=== PATIENT | male | born 1960 | race Caucasian/White ===

== ENCOUNTER 2018-04-03 14:35 | Observation (INO) ==
[2018-04-03] MEDS ORDERED: Acetaminophen 500 MG Tablet PO PRN (19:47)
[2018-04-03] MEDS ORDERED: Morphine Sulfate Inj 2 MG/ML Vial IV.PUSH PRN (21:15)
[2018-04-03] MEDS: Heparin - SQ 10,000 UNITS/ML Vial SQ SCH (22:24)
[2018-04-03] MEDS: MethylPREDNISolone Sod Succinate Inj 40 MG/ML Vial IV.PUSH SCH (22:24)
[2018-04-03] MEDS: Famotidine 20 MG Tablet PO SCH (22:25)
[2018-04-04] MEDS: Heparin - SQ 10,000 UNITS/ML Vial SQ SCH (05:04)
[2018-04-04] MEDS: MethylPREDNISolone Sod Succinate Inj 40 MG/ML Vial IV.PUSH SCH ×2 (05:04→10:36)
[2018-04-04 06:26] LABS: Baso # (Auto) 0.1 th/mm3 (0.0-0.2); Baso % (Auto) 1.4 % (0.0-2.0); Eos # (Auto) 0.1 th/mm3 (0.0-0.4); Eos % (Auto) 0.8 % (0.0-4.0); Hemoglobin 15.2 gm/dL (13.0-17.0); Lymph # (Auto) 0.7 th/mm3 (1.0-4.8); Lymph % (Auto) 11.4 % (9.0-44.0); Mean Corpuscular Hemoglobin 33.5 pg (27.0-34.0); Mean Corpuscular Volume 101.4 fL (80.0-100.0); Mean Platelet Volume 7.9 fL (7.0-11.0); Mono # (Auto) 0.2 th/mm3 (0.0-0.9); Mono % (Auto) 2.4 % (0.0-8.0); Neut # (Auto) 5.5 th/mm3 (1.8-7.7); Platelet Count 143 th/mm3 (150-450); Red Blood Count 4.54 mil/mm3 (4.50-5.90); Red Cell Distribution Width 14.5 % (11.6-17.2); White Blood Count 6.6 th/mm3 (4.0-11.0)
[2018-04-04 06:35] LABS: Chloride 102 meq/L (98-107); Sodium 139 meq/L (136-145)
[2018-04-04 06:40] LABS: Calcium 8.6 mg/dL (8.5-10.1)
[2018-04-04 06:41] LABS: Anion Gap 9 meq/L (5-15); Blood Urea Nitrogen 17 mg/dL (7-18); Carbon Dioxide 28.4 meq/L (21.0-32.0); Glucose,Random 141 mg/dL (74-106)
[2018-04-04 06:44] LABS: Glomerular Filtration Rate Greater Than 89 mL/min (>89)
[2018-04-04] MEDS: Famotidine 20 MG Tablet PO SCH (08:15)
--- NOTE | 2018-04-04 08:27 | P.HP ---
History of Present Illness Primary Care Physician: UNKNOWN History of Present Illness: This is a 57-year-old male patient with a known medical history of COPD, CHF, CAD with cardiac stents and cardiomyopathy who presented to the ED with complaints of chest pain and increased shortness of breath. Patient states that yesterday morning he ate some black pain dip took a nap and woke up around 1300 with midsternal chest pain that radiated to his neck, characterizes pain as tight in nature, lasted roughly 4 hours and subsided when he arrived to the ED. He does admit to associated sweating and shortness of breath. Denies any associated nausea, vomiting. Patient states that the chest tightness radiated up his neck as well as his bilateral sides of his chest. Patient also admits to some dizziness. 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 At that time his carvedilol was increased to 6.25 twice daily. Patient last underwent a stress test in October 2017 which was reportedly negative. He did have an [place] in 2013, states that this complaints are similar in nature. Patient denies any recent illness including fever, chills, abdominal pain, nausea, vomiting, diarrhea or dysuria. Patient does admit to current tobacco abuse, half pack per day for many years. 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 - Diagnosis (1) Chest pain (2) Hypertension (3) CHF (congestive heart failure) (4) COPD with exacerbation Review of Systems All other systems reviewed negative except as stated in HPI PMFSH - History History Provided By: Patient - Medical History Medical History: Medical History (Last Updated 04/04/18 @ 10:23 by Siri Graham) Atrial fibrillation CHF (congestive heart failure) COPD (chronic obstructive pulmonary disease) GERD (gastroesophageal reflux disease) High cholesterol Hypertension Right wrist injury - Surgical History Surgical History: Surgical History (Last Updated 04/04/18 @ 10:23 by Siri Graham) H/O heart artery stent - Family History Family History: Family History (Last Updated 04/04/18 @ 10:23 by Siri Graham) Other Cardiovascular disease - Tobacco History Second Hand Smoke Exposure: Yes Tobacco Use In Past 30 Days: Yes Smoking Status: Current every day smoker Tobacco Type: Cigarettes - Alcohol History How Often Do You Have a Drink Containing Alcohol: Monthly or less - Substance Use History Substance History: No History of Abuse Medications and Allergies Active Medications: Active Medications Acetaminophen (Tylenol) 500 mg PO Q4H PRN PRN Reason: Headache/fever Hydrocodone Bitart/Acetaminophen ([place] 7.5/325) 1 tab PO Q4H PRN PRN Reason: PAIN SCALE 1 TO 5 Albuterol (Duoneb Neb (Prn)) 1 ampul NEB Q2HR NEB PRN PRN Reason: SHORTNESS OF BREATH/WHEEZING Albuterol (Duoneb Neb (Forrest)) 1 ampul NEB Q6HR WHILE AWAKE NEB FORREST Famotidine (Pepcid) 20 mg PO BID [facility] Last Admin: 04/04/18 08:15 Dose: 20 mg Heparin Sodium (Porcine) (Heparin Inj) 5,000 units SQ Q8HR [facility] Last Admin: 04/04/18 05:04 Dose: 5,000 units Methylprednisolone Sodium Succinate (Solumedrol Inj) 40 mg IV.PUSH Q6H [facility] Last Admin: 04/04/18 05:04 Dose: 40 mg Morphine Sulfate (Morphine Inj) 2 mg IV.PUSH Q3H PRN PRN Reason: PAIN 6-10 Nitroglycerin (Nitrostat Sl) 0.4 mg SL Q5M PRN PRN Reason: ANGINA Sodium Chloride (Ns Flush) 2 ml IV.FLUSH BID [facility] Last Admin: 04/04/18 08:16 Dose: 2 ml Sodium Chloride (Ns Flush) 2 ml IV.FLUSH PRN PRN PRN Reason: FLUSH AFTER USING IV ACCESS Allergies Allergy/AdvReac Type Severity Reaction Status Date / Time Anesthetics - Amide Type Allergy Severe Unresponsiv Verified 04/03/18 14:49 e Anesthetics - Tresa Type- Allergy Severe Unresponsiv Verified 04/03/18 14:49 Parabens e lisinopril Allergy Severe "throat Verified 04/03/18 14:49 sore" Home Medications Medication Instructions Recorded Confirmed Type Multi Vitamin DAILY 04/03/18 History albuterol sulfate 2 puff INHALATION Q4-6H 04/03/18 04/03/18 History aspirin 325 mg PO DAILY 04/03/18 04/03/18 History atorvastatin 40 mg PO DAILY 04/03/18 04/03/18 History budesonide-formoterol 2 puff INHALATION BID 04/03/18 04/03/18 History carvedilol 6.25 mg PO BID 04/03/18 04/03/18 History furosemide [Lasix] 20 mg PO BID 04/03/18 04/03/18 History losartan 100 mg PO DAILY 04/03/18 04/03/18 History naproxen 250 mg PO BID 04/03/18 04/03/18 History omeprazole 20 mg PO DAILY 04/03/18 04/03/18 History Exam Vital signs: Vital Signs 04/03/18 20:00 04/03/18 21:47 04/03/18 22:00 Temperature 98.3 F Pulse Rate 76 76 74 Respiratory Rate 18 16 Blood Pressure 149/95 H Pulse Oximetry 95 93 L 04/03/18 22:17 04/04/18 00:00 04/04/18 04:00 Temperature 98.3 F 97.7 F Pulse Rate 74 75 Respiratory Rate 16 16 Blood Pressure 149/95 H 157/81 H Pulse Oximetry 98 93 L 97 Narrative: GENERAL: Well-developed, well-nourished patient in [facility]. SKIN: Warm and dry. No rash. HEAD: Normocephalic. Atraumatic. EYES: Pupils equal and round. No scleral icterus. No injection or drainage. ENT: No nasal bleeding or discharge. Mucous membranes pink and moist. NECK: Supple. Trachea midline. CARDIOVASCULAR: No murmur appreciated. No chest pain to palpation. RESPIRATORY: No accessory muscle use. Clear to auscultation. Breath sounds equal bilaterally. GASTROINTESTINAL: Abdomen soft, non-tender, nondistended. Normoactive bowel sounds x4. MUSCULOSKELETAL: No obvious deformities. Extremities without clubbing, cyanosis , or edema. NEUROLOGICAL: Awake and alert. No obvious cranial nerve deficits. Motor grossly within normal limits. 5/5 muscle strength in bilateral upper and lower extremities. Normal speech. PSYCHIATRIC: Appropriate mood and affect; insight and judgment normal. - Constitutional no acute distress - Routine HEENT Exam Head: Present: normocephalic Eye: Present: EOMI ENT: Present: mucous membranes moist Results - Labs CBC & Chem 7: 04/04/18 05:05 04/04/18 05:05 Labs: Laboratory Results - last 24 hr 04/03/18 04/03/18 04/04/18 21:51 21:51 05:05 CBC w Diff Auto diff final WBC 6.6 RBC 4.54 Hgb 15.2 Hct 46.0 MCV 101.4 H MCH 33.5 MCHC 33.0 RDW 14.5 Plt Count 143 L MPV 7.9 Neut % (Auto) 84.0 H Lymph % (Auto) 11.4 Howell % (Auto) 2.4 Eos % (Auto) 0.8 Baso % (Auto) 1.4 Neut # (Auto) 5.5 Lymph # (Auto) 0.7 L Howell # (Auto) 0.2 Eos # (Auto) 0.1 Baso # (Auto) 0.1 WBC Differential . Differential Comment . Sodium Potassium Chloride Carbon Dioxide Anion Gap BUN Creatinine Estimated GFR Random Glucose Calcium Magnesium 2.1 Troponin I Less than 0.02 L 04/04/18 05:05 CBC w Diff WBC RBC Hgb Hct MCV MCH MCHC RDW Plt Count MPV Neut % (Auto) Lymph % (Auto) Howell % (Auto) Eos % (Auto) Baso % (Auto) Neut # (Auto) Lymph # (Auto) Howell # (Auto) Eos # (Auto) Baso # (Auto) WBC Differential Differential Comment Sodium 139 Potassium 4.0 Chloride 102 Carbon Dioxide 28.4 Anion Gap 9 BUN 17 Creatinine 0.81 Estimated GFR Greater than 89 Random Glucose 141 H Calcium 8.6 Magnesium Troponin I Caprini VTE Risk Assessment Caprini VTE Risk Assessment: No/Low Risk (score <= 1) Caprini Risk Assessment Model: Point Value = 1 Point Value = 2 Point Value = 3 Point Value = 5 Age 41-60 Minor surgery BMI > 25 kg/m2 Swollen legs Varicose veins or History of unexplained or recurrent spontaneous Oral contraceptives or hormone replacement Sepsis (< 1 month) Serious lung disease, including pneumonia (< 1 month) Abnormal pulmonary function Acute myocardial infarction Congestive heart failure (< 1 month) History of inflammatory bowel disease Medical patient at bed rest Age 61-74 Arthroscopic surgery Major open surgery (> 45 min) Laparoscopic surgery (> 45 min) Malignancy Confined to bed (> 72 hours) Immobilizing plaster cast Central venous access Age >= 75 History of VTE Family history of VTE Factor V Leiden Prothrombin [id number] Lupus anticoagulant Anticardiolipin antibodies Elevated serum homocysteine Heparin-induced thrombocytopenia Other congenital or acquired thrombophilia Stroke (< 1 month) Elective arthroplasty Hip, pelvis, or leg fracture Acute spinal cord injury (< 1 month) Prophylaxis Regimen: Total Risk Factor Score Risk Level Prophylaxis Regimen 0-1 Low Early ambulation 2 Moderate Order ONE of the following: *Sequential Compression Device (SCD) *Heparin 5000 units SQ BID 3-4 Higher Order ONE of the following medications: *Heparin 5000 units SQ TID *Enoxaparin/Lovenox 40 mg SQ daily (WT < 150 kg, CrCl > 30 mL/min) *Enoxaparin/Lovenox 30 mg SQ daily (WT < 150 kg, CrCl > 10-29 mL/min) *Enoxaparin/Lovenox 30 mg SQ BID (WT < 150 kg, CrCl > 30 mL/min) AND/OR *Sequential Compression Device (SCD) 5 or more Highest Order ONE of the following medications: *Heparin 5000 units SQ TID (Preferred with Epidurals) *Enoxaparin/Lovenox 40 mg SQ daily (WT < 150 kg, CrCl > 30 mL/min) *Enoxaparin/Lovenox 30 mg SQ daily (WT < 150 kg, CrCl > 10-29 mL/min) *Enoxaparin/Lovenox 30 mg SQ BID (WT < 150 kg, CrCl > 30 mL/min) AND *Sequential Compression Device (SCD) Assessment and Plan - Assessment (1) Chest pain Code(s): R07.9 - Chest pain, unspecified Status: Acute Plan: Patient has been admitted for observation. Serial EKGs and serial troponins have been ordered for ruling out ACS purposes. Serial troponins flat. EKG reviewed showing sinus rhythm, controlled heart rate, no ST changes to indicate ischemia. Continued on cardiac telemetry, reviewed from overnight no arrhythmias noted. Chest x-ray did not show any acute process. CBC and BMP essentially remarkable. Chest pain has resolved. Patient admits to a recent stress test in October of this year which was reportedly unremarkable. He follows with his [facility] [place] was last seen 2 weeks ago with changes to his carvedilol. Vital signs have been stable. Afebrile. ACS ruled out. Will have patient follow-up outpatient with his diesel fleet mechanic [place] the [place]. Patient encouraged to return to ED if symptoms persist. Stable at this time and agreeable to the plan. (2) Hypertension Code(s): I10 - Essential (primary) hypertension Status: Acute Plan: Monitor blood pressure trends. Stable. Continued blood pressure home medications. (3) CHF (congestive heart failure) Code(s): I50.9 - Heart failure, unspecified Status: Acute Plan: Stable. Continue Lasix. Follow-up outpatient cardiology. (4) COPD with exacerbation Code(s): J44.1 - Chronic obstructive pulmonary disease with (acute) exacerbation Status: Acute Plan: Patient was given IV steroids as well as nebulizers. Symptoms have improved. Denies any further shortness of breath. Chest x-ray reviewed showing no acute disease. Will discharge home with home nebulizers and inhalers as well as a Medrol Dosepak. Encouraged follow-up with PCP. - Plan Discharge Planning: Discharge home today. Heart healthy diet. Activity as tolerated. Prescriptions as ordered on discharge planning. Follow-up PCP and cardiology at [place].
[2018-04-04 08:42] VITALS: BP 184/93; RESP 18; TEMP 96.6
[2018-04-04 09:22] LABS: Creatine Kinase 64 U/L (39-308)
[2018-04-04] MEDS ORDERED: Aspirin 325 MG Tablet PO SCH (10:15)
[2018-04-04] MEDS ORDERED: Carvedilol 6.25 MG Tablet PO SCH (10:15)
[2018-04-04] MEDS ORDERED: Furosemide 20 MG Tablet PO SCH (10:15)
[2018-04-04 10:51] VITALS: PULSE 66
[2018-04-04] MEDS ORDERED: Budesonide-Formoterol 160/4.5 MCG 6 GM Inhaler INH SCH (12:00)
--- NOTE | 2018-04-04 14:43 | ECG ---
Date Performed: 04/03/2018 Time Performed: 21:47:23 PTAGE: 57 years EKG: Sinus rhythm NONSPECIFIC T-WAVE ABNORMALITY BORDERLINE ECG NO PREVIOUS TRACING DOCTOR: Kai Graf Interpretating Date/Time 04/04/2018 14:43:12
--- NOTE | 2018-04-04 14:51 | ECG ---
Date Performed: 04/04/2018 Time Performed: 08:45:20 PTAGE: 57 years EKG: Sinus rhythm MODERATE INTRAVENTRICULAR CONDUCTION DELAY NONSPECIFIC T-WAVE ABNORMALITY BORDERLINE ECG PREVIOUS TRACING : 04/03/2018 21.47 Since previous tracing, no significant change noted DOCTOR: Kai Graf Interpretating Date/Time 04/04/2018 14:49:15
[2018-04-04 15:05] VITALS: O2SAT 96
== END 2018-04-04 11:28 | disposition home or self-care (01) ==
LOC: PH3 14:35 → PHEDDLT 14:35
PROVIDERS: ADMIT Hospitalist; ATTEND Hospitalist

== ENCOUNTER 2018-09-21 21:15 | Inpatient (IN) ==
[2018-09-22] MEDS ORDERED: Acetaminophen 325 MG Tablet PO PRN (02:08)
[2018-09-22] MEDS ORDERED: Heparin Drip 25,000 UNIT/250 ML BAG IV.CONT PRN (02:12)
[2018-09-22] MEDS ORDERED: Haloperidol Inj 5 MG/ML Ampul IV.PUSH PRN (04:04)
[2018-09-22] MEDS ORDERED: LORazepam 1 MG Tablet PO PRN (04:04)
--- NOTE | 2018-09-22 04:07 | P.HPIM ---
History of Present Illness Service: [facility] Primary Care Physician: [facility] Chief Complaint: Shortness of breath History of Present Illness: 57-year-old male with a history of hypertension, hyperlipidemia, CAD with stent placement, COPD, CHF and alcohol abuse presented to the ED with complaints of shortness of breath for the last 2 days. Patient states he has had a history of pneumonia and fluid on his lungs and he was not sure if this was the case so he presented to the ER. He states for the last 2 days he has just not been able to catch his breath and he has been diaphoretic. He denies any true chest pain but states he does have some substernal chest pressure with no radiation or associated nausea vomiting. Inpatient Certification Inpatient Certification: I certify that the inpatient services were ordered in accordance with Medicare regulations governing the order. This includes certification that hospital inpatient services are reasonable and necessary and in the case of services not specified as inpatient-only under 42 CFR 419.22(n), that they are appropriately provided as inpatient services in accordance to with the 2-midnight benchmark under 43 CFR 412.3(e) Estimated Total Length of Stay (Days): 2 Plans for Post Hospital Care: Home Review of Systems Review of Systems: all other systems reviewed are negative [facility] Medical History Medical History Atrial fibrillation (Acute) CHF (congestive heart failure) (Acute) COPD (chronic obstructive pulmonary disease) (Acute) GERD (gastroesophageal reflux disease) (Acute) High cholesterol (Acute) Hypertension (Acute) Right wrist injury (Acute) Surgical History Surgical History H/O heart artery stent (Acute) Social History Social History Substance History: No History of Abuse Second Hand Smoke Exposure: Yes Smoking Status: Heavy tobacco smoker Tobacco Type: Cigarettes How Often Do You Have a Drink Containing Alcohol: 4 or more times a week Medications and Allergies Allergies Allergy/AdvReac Type Severity Reaction Status Date / Time Anesthetics - Amide Type Allergy Severe Unresponsiv Verified 09/22/18 00:08 e Anesthetics - Tresa Type- Allergy Severe Unresponsiv Verified 09/22/18 00:08 Parabens e lisinopril Allergy Severe "throat Verified 09/22/18 00:08 sore" Home Medications Medication Instructions Recorded Confirmed Type aspirin 325 mg PO DAILY 04/03/18 09/22/18 History atorvastatin 40 mg PO DAILY 04/03/18 09/22/18 History carvedilol 12.5 mg PO BID 04/03/18 09/22/18 History furosemide [Lasix] 20 mg PO BID 04/03/18 09/22/18 History losartan 100 mg PO DAILY 04/03/18 09/22/18 History naproxen 250 mg PO BID PRN 04/03/18 09/22/18 History omeprazole 20 mg PO DAILY 04/03/18 09/22/18 History albuterol sulfate 2 puff INHALATION Q6HR PRN 09/21/18 09/22/18 History budesonide-formoterol 2 puff INHALATION BID PRN 09/21/18 09/22/18 History Active Medications: Active Medications Acetaminophen (Tylenol) 650 mg PO Q4H PRN PRN Reason: Temp > 100.4 Heparin Sodium (Porcine) (Heparin Inj) 2,500 units IV.PUSH UNSCH PRN PRN Reason: aPTT 25-39 Heparin Sodium (Porcine) (Heparin Inj) 5,000 units IV.PUSH UNSCH PRN PRN Reason: aPTT < 25 Heparin Sodium/Dextrose (Heparin/D5w 25,000 U/250 Ml) 25,000 unit in 250 mls @ 0 mls/hr IV.CONT TITRATE PRN; Protocol PRN Reason: Per Protocol Nitroglycerin (Nitrostat Sl) 0.4 mg SL Q5M PRN PRN Reason: CHEST PAIN Nitroglycerin (Nitro-Bid 2% Oint) 0.5 inch TOPICAL Q6HR SHERMAN Ondansetron HCl (Zofran Inj) 4 mg IV.PUSH Q6H PRN PRN Reason: NAUSEA OR VOMITING Sodium Chloride (Ns Flush) 2 ml IV.FLUSH BID [place] Sodium Chloride (Ns Flush) 2 ml IV.FLUSH PRN PRN PRN Reason: FLUSH AFTER USING IV ACCESS Physical Exam Vital signs: Last Vital Signs Temp 97.9 F 09/22/18 01:57 Pulse 80 09/22/18 01:57 Resp 22 09/22/18 01:57 BP 173/87 H 09/22/18 01:57 Pulse Ox 91 L 09/22/18 01:57 Intake & Output 09/19/18 09/20/18 09/21/18 09/22/18 06:59 06:59 06:59 06:59 Weight 97 kg Narrative: GENERAL: well nourished patient who appears very anxious SKIN: Warm and dry. EYES: No scleral icterus. No injection or drainage. NECK: Supple, trachea midline. No JVD or lymphadenopathy. CARDIOVASCULAR: Regular rate and rhythm without murmurs, gallops, or rubs. RESPIRATORY: Coarse breath sounds, no wheezes or crackles noted GASTROINTESTINAL: Abdomen soft, non-tender, nondistended. MUSCULOSKELETAL: No cyanosis, or edema. Neurological: Alert and oriented x3, anxious, moves all follows commands Caprini VTE Risk Assessment Caprini VTE Risk Assessment: Moderate/High Risk (score >= 2) Caprini Risk Assessment Model: Point Value = 1 Point Value = 2 Point Value = 3 Point Value = 5 Age 41-60 Minor surgery BMI > 25 kg/m2 Swollen legs Varicose veins or History of unexplained or recurrent spontaneous Oral contraceptives or hormone replacement Sepsis (< 1 month) Serious lung disease, including pneumonia (< 1 month) Abnormal pulmonary function Acute myocardial infarction Congestive heart failure (< 1 month) History of inflammatory bowel disease Medical patient at bed rest Age 61-74 Arthroscopic surgery Major open surgery (> 45 min) Laparoscopic surgery (> 45 min) Malignancy Confined to bed (> 72 hours) Immobilizing plaster cast Central venous access Age >= 75 History of VTE Family history of VTE Factor V Leiden Prothrombin [id number] Lupus anticoagulant Anticardiolipin antibodies Elevated serum homocysteine Heparin-induced thrombocytopenia Other congenital or acquired thrombophilia Stroke (< 1 month) Elective arthroplasty Hip, pelvis, or leg fracture Acute spinal cord injury (< 1 month) Prophylaxis Regimen: Total Risk Factor Score Risk Level Prophylaxis Regimen 0-1 Low Early ambulation 2 Moderate Order ONE of the following: *Sequential Compression Device (SCD) *Heparin 5000 units SQ BID 3-4 Higher Order ONE of the following medications: *Heparin 5000 units SQ TID *Enoxaparin/Lovenox 40 mg SQ daily (WT < 150 kg, CrCl > 30 mL/min) *Enoxaparin/Lovenox 30 mg SQ daily (WT < 150 kg, CrCl > 10-29 mL/min) *Enoxaparin/Lovenox 30 mg SQ BID (WT < 150 kg, CrCl > 30 mL/min) AND/OR *Sequential Compression Device (SCD) 5 or more Highest Order ONE of the following medications: *Heparin 5000 units SQ TID (Preferred with Epidurals) *Enoxaparin/Lovenox 40 mg SQ daily (WT < 150 kg, CrCl > 30 mL/min) *Enoxaparin/Lovenox 30 mg SQ daily (WT < 150 kg, CrCl > 10-29 mL/min) *Enoxaparin/Lovenox 30 mg SQ BID (WT < 150 kg, CrCl > 30 mL/min) AND *Sequential Compression Device (SCD) Assessment and Plan Plan 57-year-old male with a history of hypertension, hyperlipidemia, CAD with stent placement, COPD, CHF and alcohol abuse presented to the ED with complaints of shortness of breath for the last 2 days. NSTEMI in patient with a history of CAD with stent placement Troponin 0.11 EKG reviewed and shows sinus tach with no ST elevation -Serial troponin and EKGs ordered -Heparin drip -Aspirin ordered -N.p.o. -Consult cardiology for evaluation Hypertension, chronic -Resume home medications, carvedilol, losartan and monitor vitals CHF, chronic -Resume home medications, Lasix -Monitor for fluid overload COPD, not in exacerbation -Duo nebs as needed Alcohol abuse, patient drinks a pint of vodka daily -CIWA protocol -Withdrawal precautions DVT prophylaxis: Heparin
[2018-09-22 05:19] LABS: Troponin I 0.1 ng/mL (0.02-0.05)
[2018-09-22] MEDS: Furosemide 20 MG Tablet PO SCH ×2 (08:05→20:53)
[2018-09-22] MEDS: Aspirin 325 MG Tablet PO SCH (08:06)
[2018-09-22] MEDS: Pantoprazole Sodium 20 MG DR Tablet PO SCH (08:06)
[2018-09-22] MEDS ORDERED: Heparin 10,000 UNITS/10 ML Vial (for IV use) IV.PUSH PRN ×2 (08:13→08:23)
[2018-09-22] MEDS ORDERED: Carvedilol 6.25 MG Tablet PO SCH (09:00)
[2018-09-22 09:38] LABS: Troponin I 0.09 ng/mL (0.02-0.05)
[2018-09-22] MEDS ORDERED: Regadenoson Inj 0.4 MG/5 ML Syringe IV.PUSH ONE (12:52)
--- NOTE | 2018-09-22 13:53 | ECG ---
Date Performed: 09/22/2018 Time Performed: 03:49:54 PTAGE: 57 years EKG: Sinus rhythm with PAC(s) Prolonged QT interval Possible inferior infarct - age undetermined Ant/septal and latera l T wave changes may be due to myocardial ischemia Abnormal ECG Compared to PREVIOUS TRACING , the anterior T-wave changes are more pronounced but otherwise no signi ficant change. PREVIOUS TRACIN04/04/2018 08.45 DOCTOR: Zoya Nunn Interpretating Date/Time 09/22/2018 13:51:34
--- NOTE | 2018-09-22 14:09 | NM ---
EXAM DATE: 09/22/2018 2:01 PM EST AGE/SEX: 57 years / Male INDICATIONS:Coronary atherosclerosis. Atrial fibrillation Dyspnea and diaphoresis. CLINICAL DATA: This is the patient's initial encounter. Patient reports that signs and symptoms have been present for 1 day and indicates a pain score of 0/10. MEDICAL/SURGICAL HISTORY: Congestive heart failure. Chronic obstructive pulmonary disease. Hy percholesterolemia. Hypertension. Smoker. Coronary artery stent. COMPARISON: No prior exams available for comparison. DOSE: 8.7 mCi Tc 99m Myoview at rest 26.8 mCi [id number] at stress 0.4 mg Lexiscan STRESS SYMPTOMS: Short of breath. EJECTION FRACTION: 45 % TECHNIQUE: The patient underwent pharmacologic stress with infusion of prescribed dose. Continuous ECG tracing was monitored during stress. Gated SPECT imaging was performed after stress and conventi onal SPECT imaging was performed at rest. The examination was performed on a SPECT/CT scanner, both attenuation and non-corrected datasets were reviewed. FINDINGS: Distribution: The maximum perfused segment at stress is in the anterior wall. Perfusion Study: No significant fixed or reversible perfusion defect is identified. Gated Study: There are intact wall motion and wall thickening without hypokinetic or dyskinetic segm ents. The ejection fraction is calculated at 45%. RISK CATEGORY: Intermediate (1-3 % Annual Mortality Rate) CONCLUSION: 1. No significant fixed or reversible perfusion defect is identified. 2. No focal wall motion abnormality is identified. However, left ventricle ejection fraction is redu cristobal at 45%. Electronically signed by: Harrison Main MD Board Certified Radiologist 09/22/2018 2:08 PM EST
[2018-09-22] MEDS ORDERED: Magnesium Sulfate Inj 2 GM in Sodium Chlor 0.9% Inj 96 ML IV.SIG ONE (14:30)
[2018-09-22] MEDS: Carvedilol 6.25 MG Tablet PO SCH (20:52)
--- NOTE | 2018-09-23 00:13 | MB ---
cc: Levar Montejo DO DATE: 09/22/2018 REASON FOR CONSULTATION: Elevated troponin, shortness of breath. HISTORY OF PRESENT ILLNESS: Sandor Coleman is a 57-year-old male who presented to [facility] Emergency Room due to shortness of breath for the past 2 days. He states that he has just been unable to catch his breath. He has also been mildly diaphoretic. He denies any chest pain, although feels that his lungs are somewhat heavy occasionally. He denies any nausea or vomiting. On arrival, blood pressure was noted to be elevated at 202/91 on arrival. In seeing him, he is currently hemodynamically stable without chest pain or shortness of breath. PAST MEDICAL HISTORY: 1. Atrial fibrillation. 2. Congestive heart failure, which appears to be diastolic in nature. 3. COPD . 4. GERD. 5. Hyperlipidemia. 6. Hypertension. PAST SURGICAL HISTORY: Previous stent of an unknown vessel. ALLERGIES: 1. LISINOPRIL. 2. ANESTHETICS. MEDICATIONS: 1. Lipitor 40 mg daily. 2. Lasix 20 mg b.i.d. 3. Omeprazole 20 mg daily. 4. Naproxen 250 mg b.i.d. as needed. 5. Losartan 100 mg daily. 6. Coreg 12.5 mg b.i.d. 7. Aspirin 325 mg daily. 8. Albuterol 2 puffs every 6 hours as needed. 9. Budesonide/formoterol 2 puffs b.i.d. as needed. 10. Pepcid 20 mg b.i.d. FAMILY HISTORY: Denies sudden cardiac within the family. SOCIAL HISTORY: The patient is a heavy smoker, smoking 1-2 packs of cigarettes a day. He states that he drinks 2-4 ounces of liquor daily, although there is a note that he may drink up to a pint of vodka daily. REVIEW OF SYSTEMS: Fourteen systems were reviewed including osteopathic. Pertinent positives and negatives above, otherwise negative. PHYSICAL EXAMINATION: VITAL SIGNS: Temperature 97.8, heart rate 69, blood pressure 167/91, respirations 18, pulse oximetry 95% on 2 liters. GENERAL: The patient appears well, in no acute distress. Alert, awake and oriented x3. HEENT: Extraocular muscles intact. Mucous membranes moist. NECK: Supple. No JVD at 45 degrees. No carotid bruits heard bilaterally. Carotid upstroke is brisk in nature. HEART: Regular rate and rhythm. Positive first and second heart sounds with no noted murmurs, gallops or rubs. LUNGS: Clear to auscultation bilaterally. No wheezes, rales or rhonchi. ABDOMEN: Soft, nontender, nondistended. No organomegaly noted. EXTREMITIES: Show trace edema bilaterally. NEUROLOGIC: No focal deficits. SKIN: Warm, dry and intact. OSTEOPATHIC: No kyphoscoliosis, lordosis or paraspinal tender points. LABORATORY DATA: Hemoglobin 14.5, hematocrit 41.3, platelets 107. Potassium 4.1, BUN 20, creatinine 0.9. Troponin 0.09. Electrocardiogram (09/22/2018 at 03:49): Sinus rhythm with PACs, nonspecific ST-T wave changes anteriorly. IMPRESSION: 1. Shortness of breath. 2. Hypertensive urgency with a blood pressure of 200/90 on arrival. 3. Paroxysmal atrial fibrillation. 4. Nonischemic cardiomyopathy with a previous ejection fraction of 35% to 40%. 5. Minimally elevated troponin. 6. Tobacco abuse. 7. Alcohol abuse. RECOMMENDATIONS: 1. Mr. Coleman presented with shortness of breath, which may be due to hypertensive urgency with a blood pressure of 200/90 on arrival. 2. He does have a minimally elevated troponin, but I believe this is probably secondary to his overall blood pressure as well as possible exacerbation of his systolic heart failure. 3. It appears that he has a nonischemic cardiomyopathy with a previous ejection fraction of 35% to 40%. 4. We will have him undergo a pharmacologic nuclear stress test to rule out ischemia as a possible cause. 5. With his blood pressure as well as heart failure, he should attempt to avoid NSAIDs as much as possible and attempt to not use naproxen. 6. He will continue on carvedilol and losartan for his overall cardiomyopathy. 7. He tries to downplay how much he drinks, but I explained to him how this affects his blood pressure as well as his overall cardiomyopathy. Looking at his lab work with an elevation of his AST greater than his ALT, he most likely is a more significant drinker than he plays on to be. 8. As far as his atrial fibrillation goes, he has a CHADS-VASc of 2 (congestive heart failure, hypertension). Apparently, he was not deemed a candidate for anticoagulation by his [facility] possibly due to his drinking habits. In discussing with him, he has had falls in the past. For now, I would leave him off the anticoagulation due to his questionable drinking past as well as thrombocytopenia and falls. This can be reass[facility] by the [facility]. 9. We will stop his heparin drip if stress test is negative. 10. Further recommendations will be made based on the hospital course. 11. I spoke to him for greater than 3 minutes about his tobacco cessation. I also spoke to him about his drinking habits and how this affects the heart. Thank you for allowing me to see Sandor Coleman. If there are any questions, please do not hesitate to call. Levar Montejo, VGP/sv , 11:15 PM , 11:30 PM
[2018-09-23 06:24] LABS: Baso # (Auto) 0.1 th/mm3 (0.0-0.2); Baso % (Auto) 0.8 % (0.0-2.0); Eos % (Auto) 0.2 % (0.0-4.0); Hematocrit 40.8 % (39.0-51.0); Lymph % (Auto) 14.1 % (9.0-44.0); Mean Corpuscular HGB Conc 34.3 % (32.0-36.0); Mean Corpuscular Hemoglobin 34.5 pg (27.0-34.0); Mean Corpuscular Volume 100.4 fL (80.0-100.0); Mean Platelet Volume 7.8 fL (7.0-11.0); Mono # (Auto) 0.5 th/mm3 (0.0-0.9); Mono % (Auto) 7.1 % (0.0-8.0); Neut # (Auto) 5.5 th/mm3 (1.8-7.7); Neut % (Auto) 77.8 % (16.0-70.0); Platelet Count 82 th/mm3 (150-450); Red Blood Count 4.06 mil/mm3 (4.50-5.90); Red Cell Distribution Width 14.8 % (11.6-17.2); White Blood Count 7.1 th/mm3 (4.0-11.0)
[2018-09-23 06:57] LABS: Calcium 7.8 mg/dL (8.5-10.1); Carbon Dioxide 30.7 meq/L (21.0-32.0); Potassium 3.5 meq/L (3.5-5.1)
[2018-09-23 07:13] LABS: Lymphocytes 11 % (9-44); Metamyelocytes 1 % (0-1); Monocytes 3 % (0-8)
[2018-09-23 07:14] LABS: Platelet Morphology Normal (Normal); Stomatocytes 1+
[2018-09-23] MEDS: Aspirin 325 MG Tablet PO SCH (09:01)
[2018-09-23] MEDS: Pantoprazole Sodium 20 MG DR Tablet PO SCH (09:02)
[2018-09-23] MEDS: Carvedilol 6.25 MG Tablet PO SCH (09:02)
[2018-09-23] MEDS: Furosemide 20 MG Tablet PO SCH (09:02)
[2018-09-23 12:04] VITALS: BP 102/53; RESP 17; TEMP 97.9
--- NOTE | 2018-09-23 12:25 | P.PNCA ---
Subjective Interval history: No events overnight Feels well Medications and Allergies Active Medications: Active Medications Acetaminophen (Tylenol) 650 mg PO Q4H PRN PRN Reason: Temp > 100.4 Albuterol (Duoneb Neb (Prn)) 1 ampul NEB Q4HR NEB PRN PRN Reason: SHORTNESS OF BREATH/WHEEZING Last Admin: 09/22/18 22:41 Dose: 1 ampul Aspirin (Aspirin) 325 mg PO DAILY [facility] Last Admin: 09/23/18 09:01 Dose: 325 mg Atorvastatin Calcium (Lipitor) 40 mg PO DAILY [facility] Last Admin: 09/23/18 09:02 Dose: 40 mg Carvedilol (Coreg) 25 mg PO BID [facility] Last Admin: 09/23/18 09:02 Dose: 25 mg Flumazenil (Romazicon Inj) 0.2 mg IV.PUSH Q1M PRN PRN Reason: OVERSEDATION Furosemide (Lasix) 20 mg PO BID [facility] Last Admin: 09/23/18 09:02 Dose: 20 mg Haloperidol Lactate (Haldol Inj) 1 mg IV.PUSH Q15M PRN PRN Reason: for severe agitation Heparin Sodium (Porcine) (Heparin Inj) 5,000 units IV.PUSH UNSCH PRN PRN Reason: aPTT < 25 Lorazepam (Ativan Inj) 1 mg IV.PUSH Q4H PRN PRN Reason: for CIWA 8-10 Lorazepam (Ativan Inj) 2 mg IV.PUSH Q15M PRN PRN Reason: for CIWA > 20 Lorazepam (Ativan Inj) 2 mg IV.PUSH Q1H PRN PRN Reason: for CIWA 15-20 Lorazepam (Ativan Inj) 2 mg IV.PUSH Q2H PRN PRN Reason: for CIWA 11-14 Lorazepam (Ativan) 1 mg PO Q4H PRN PRN Reason: for CIWA 8-10 Last Admin: 09/22/18 08:40 Dose: 1 mg Lorazepam (Ativan) 2 mg PO Q2H PRN PRN Reason: for CIWA 11-14 Losartan Potassium (Cozaar) 100 mg PO DAILY [facility] Last Admin: 09/23/18 09:01 Dose: 100 mg Nitroglycerin (Nitrostat Sl) 0.4 mg SL Q5M PRN PRN Reason: CHEST PAIN Nitroglycerin (Nitro-Bid 2% Oint) 0.5 inch TOPICAL Q6HR [facility] Last Admin: 09/23/18 05:19 Dose: 0.5 inch Ondansetron HCl (Zofran Inj) 4 mg IV.PUSH Q6H PRN PRN Reason: NAUSEA OR VOMITING Last Admin: 09/22/18 20:53 Dose: 4 mg Pantoprazole Sodium (Protonix) 20 mg PO DAILY [facility] Last Admin: 09/23/18 09:02 Dose: 20 mg Sodium Chloride (Ns Flush) 2 ml IV.FLUSH BID [facility] Last Admin: 09/23/18 09:02 Dose: 2 ml Sodium Chloride (Ns Flush) 2 ml IV.FLUSH PRN PRN PRN Reason: FLUSH AFTER USING IV ACCESS Allergies Allergy/AdvReac Type Severity Reaction Status Date / Time Anesthetics - Amide Type Allergy Severe Unresponsiv Verified 09/22/18 00:08 e Anesthetics - Tresa Type- Allergy Severe Unresponsiv Verified 09/22/18 00:08 Parabens e lisinopril Allergy Severe "throat Verified 09/22/18 00:08 sore" Home Medications Medication Instructions Recorded Confirmed Type aspirin 325 mg PO DAILY 04/03/18 09/22/18 History atorvastatin 40 mg PO DAILY 04/03/18 09/22/18 History carvedilol 12.5 mg PO BID 04/03/18 09/22/18 History furosemide [Lasix] 20 mg PO BID 04/03/18 09/22/18 History losartan 100 mg PO DAILY 04/03/18 09/22/18 History naproxen 250 mg PO BID PRN 04/03/18 09/22/18 History omeprazole 20 mg PO DAILY 04/03/18 09/22/18 History albuterol sulfate 2 puff INHALATION Q6HR PRN 09/21/18 09/22/18 History budesonide-formoterol 2 puff INHALATION BID PRN 09/21/18 09/22/18 History famotidine 20 mg PO BID 09/22/18 09/22/18 History Physical Exam Vital signs: Vital Signs 09/22/18 14:00 09/22/18 15:00 09/22/18 15:24 Temperature 97.6 F Pulse Rate 80 67 71 Respiratory Rate 18 Blood Pressure 147/54 H Pulse Oximetry 94 L 09/22/18 16:00 09/22/18 17:00 09/22/18 18:00 Temperature Pulse Rate 78 76 90 Respiratory Rate 16 Blood Pressure Pulse Oximetry 94 L 09/22/18 19:00 09/22/18 19:46 09/22/18 20:00 Temperature 97.8 F Pulse Rate 94 H 85 Respiratory Rate 18 Blood Pressure 141/65 H Pulse Oximetry 92 L 94 L 09/22/18 21:00 09/22/18 22:00 09/22/18 22:47 Temperature Pulse Rate 88 68 74 Respiratory Rate 20 Blood Pressure Pulse Oximetry 09/22/18 23:00 09/23/18 00:00 09/23/18 01:00 Temperature 97.9 F Pulse Rate 65 70 66 Respiratory Rate 18 Blood Pressure 116/64 Pulse Oximetry 97 97 09/23/18 02:00 09/23/18 03:00 09/23/18 03:54 Temperature 98.1 F Pulse Rate 94 H 61 84 Respiratory Rate 18 Blood Pressure 130/71 Pulse Oximetry 96 09/23/18 03:56 09/23/18 04:00 09/23/18 05:00 Temperature Pulse Rate 86 78 Respiratory Rate Blood Pressure Pulse Oximetry 97 09/23/18 06:00 09/23/18 07:00 09/23/18 08:00 Temperature Pulse Rate 80 62 60 Respiratory Rate Blood Pressure Pulse Oximetry 09/23/18 09:00 09/23/18 12:00 Temperature 97.9 F Pulse Rate 96 H 69 Respiratory Rate 17 Blood Pressure 102/53 L Pulse Oximetry Intake & Output 09/22/18 09/23/18 09/23/18 18:59 06:59 18:59 Intake Total 600 / 600 480 / 480 Output Total 400 / 400 400 / 400 Balance 200 / 200 80 / 80 Weight 95.7 kg Intake: IV 100 / 100 Magnesium Sulfate Inj 2 GM In 100 / 100 NS Inj 96 ML @ 50 mls/hr IV.SIG ONCE ONE Rx#:[id number] Oral 500 / 500 480 / 480 Output: Urine 400 / 400 400 / 400 Other: # Voids 2 Date of Last Bowel Movement 09/22/18 09/23/18 09/23/18 # Bowel Movements 1 Narrative: GENERAL: well nourished patient who appears very anxious SKIN: Warm and dry. EYES: No scleral icterus. No injection or drainage. NECK: Supple, trachea midline. No JVD or lymphadenopathy. CARDIOVASCULAR: Regular rate and rhythm without murmurs, gallops, or rubs. RESPIRATORY: Coarse breath sounds, no wheezes or crackles noted GASTROINTESTINAL: Abdomen soft, non-tender, nondistended. MUSCULOSKELETAL: No cyanosis, or edema. Neurological: Alert and oriented x3, anxious, moves all follows commands Results 09/23/18 05:53 09/23/18 05:53 Cardiac Enzymes 09/22/18 09/22/18 Range/Units 04:34 08:33 Troponin I 0.10 H 0.09 H (0.02-0.05) ng/mL Coagulation 09/22/18 09/22/18 09/22/18 Range/Units 04:34 08:33 10:32 APTT 47.7 H D 44.6 H 41.7 H (23.4-31.7) sec 09/23/18 Range/Units 05:53 APTT 24.5 D (23.4-31.7) sec CBC 09/23/18 Range/Units 05:53 WBC 7.1 (4.0-11.0) th/mm3 RBC 4.06 L (4.50-5.90) mil/mm3 Hgb 14.0 (13.0-17.0) gm/dL Hct 40.8 (39.0-51.0) % Plt Count 82 L (150-450) th/mm3 Neut # (Auto) 5.5 (1.8-7.7) th/mm3 Lymph # (Auto) 1.0 (1.0-4.8) th/mm3 Lynn # (Auto) 0.5 (0.0-0.9) th/mm3 Eos # (Auto) 0.0 (0.0-0.4) th/mm3 Baso # (Auto) 0.1 (0.0-0.2) th/mm3 Comprehensive Metabolic Panel 09/23/18 Range/Units 05:53 Sodium 139 (136-145) meq/L Potassium 3.5 (3.5-5.1) meq/L Chloride 101 (98-107) meq/L Carbon Dioxide 30.7 (21.0-32.0) meq/L BUN 15 (7-18) mg/dL Creatinine 0.95 (0.60-1.30) mg/dL Calcium 7.8 L (8.5-10.1) mg/dL Intake and Output 09/22/18 09/23/18 09/23/18 22:59 06:59 14:59 Intake Total 600 / 600 480 / 480 Output Total 400 / 400 400 / 400 Balance 200 / 200 80 / 80 Intake: IV 100 / 100 Magnesium Sulfate Inj 2 GM In 100 / 100 NS Inj 96 ML @ 50 mls/hr IV.SIG ONCE ONE Rx#:[id number] Oral 500 / 500 480 / 480 Output: Urine 400 / 400 400 / 400 Other: # Voids 2 Date of Last Bowel Movement 09/22/18 09/23/18 09/23/18 # Bowel Movements 1 Weight 95.7 kg - Imaging and Cardiology Imaging: Impressions Myocardial Perfusion Scan Nuc Med 09/22/18 00:00 CONCLUSION: 1. No significant fixed or reversible perfusion defect is identified. 2. No focal wall motion abnormality is identified. However, left ventricle ejection fraction is reduced at 45%. Assessment and Plan - Assessment (1) COPD with exacerbation Code(s): J44.1 - Chronic obstructive pulmonary disease with (acute) exacerbation Status: Acute (2) Chest pain Code(s): R07.9 - Chest pain, unspecified Status: Acute (3) Hypertension Code(s): I10 - Essential (primary) hypertension Status: Acute (4) CHF (congestive heart failure) Code(s): I50.9 - Heart failure, unspecified Status: Acute - Plan 1. Shortness of breath. Possible HTN urgency/COPD 2. Hypertensive urgency with a blood pressure of 200/90 on arrival Blood pressure better controlled Agree with increase in Coreg Avoid NSAIDS if possible 3. Paroxysmal atrial fibrillation. CHADSVASc = 2 Hemoccult positive, questionable drinking history, falls Would avoid anticoagulation 4. Nonischemic cardiomyopathy with a previous ejection fraction of 35% to 40%. Con't Coreg/Losartan Avoid alcohol abuse 5. Minimally elevated troponin. Non-specific, secondary to CHF/HTN Nuclear stress test showing no ischemia 6. Tobacco abuse. 7. Alcohol abuse. 8. Cardiovascularly stable for discharge
--- NOTE | 2018-09-23 12:25 | P.DS ---
DS: Providers Date of admission: 09/22/18 01:35 Primary care physician: [facility] Consults: 09/22/18 02:14 Consult to Cardiology Routine Consulting Provider: Jean Brown Does the patient have a Formula Checker who follows them?: No Preferred Rental Sales Agent:: Bull Gang Supervisor Physician Reason for Consultation: NSTEMI Notified:: Service Spoke with:: Camila Date Notified:: 09/22/18 Time Notified:: 02:19 Ordering Provider: MARLIN Brief History from admission: 57-year-old male with a history of hypertension, hyperlipidemia, CAD with stent placement, COPD, CHF and alcohol abuse presented to the ED with complaints of shortness of breath for the last 2 days. Patient states he has had a history of pneumonia and fluid on his lungs and he was not sure if this was the case so he presented to the ER. He states for the last 2 days he has just not been able to catch his breath and he has been diaphoretic. He denies any true chest pain but states he does have some substernal chest pressure with no radiation or associated nausea vomiting. DS: Summary Patient was admitted to the [facility] for further management. ISSUES ADDRESSED DURING THIS HOSPITALIZATION: 1. Shortness of breath--this was thought to be due to hypertensive urgency, and possibly COPD as well. Patient responded appropriately to treatment of his blood pressure. Troponin was mildly elevated on admission,patient was initially started on heparin which was discontinued.Cardiology was consulted.Patient had no signs of ischemia on nuclear stress test done during this hospitalization. Mild troponin elevation likely this was related to hypertensive urgency. 2.Hypertensive urgency-systolic BP were in the 200's range on presentation. His medication were resumed,with Carvedilol dose being increased to 25mg BID. His blood pressure returned to normal range. Losartan was continued at his usual dose. 3.Non ischemic Cardiomyopathy--patient was counseled to abstain from abusing alcohol. Carvedilol and Losartan were continued. 4.Paroxysmal Atrial [id number] score of 2. rate was controlled. he is not on any anticoagulation, and was not started in the setting of hem 5.Hemoccult +ve stool--noted here when patient mention he had some blood in stool. His H/h remained stable throughout this hospitalization. Patient preferred to follow up with his outpatient GI doctor, he said he will call to make an appointment for colonoscopy which had previously been scheduled but he missed the appointment. Patient has been advised to follow up with his PCP within 1 week for re- evaluation. Time Spent with Patient Total time spent providing and/or coordinating discharge services: Quality: VTE Deep Vein Thrombosis/Pulmonary Embolism Present on Admission: No Results Labs on day of discharge: Labs from last 24 hours 09/23/18 09/23/18 09/23/18 05:53 05:53 05:53 WBC 7.1 RBC 4.06 L Hgb 14.0 Hct 40.8 MCV 100.4 H D MCH 34.5 H MCHC 34.3 RDW 14.8 Plt Count 82 L MPV 7.8 Prelim Diff (Auto) Slide review pending Neut % (Auto) 77.8 H Lymph % (Auto) 14.1 Craig % (Auto) 7.1 Eos % (Auto) 0.2 Baso % (Auto) 0.8 Neut # (Auto) 5.5 Lymph # (Auto) 1.0 Craig # (Auto) 0.5 Eos # (Auto) 0.0 Baso # (Auto) 0.1 WBC Differential Manual diff final Seg Neuts % (Manual) 84 H Lymphocytes % (Manual) 11 Monocytes % (Manual) 3 Basophils % (Manual) 1 Metamyelocytes % (Man) 1 Abs Neuts (Manual) 6.0 Differential Comment . Platelet Estimate Low L Platelet Morphology Normal Stomatocytes 1+ H APTT 24.5 D Sodium 139 Potassium 3.5 Chloride 101 Carbon Dioxide 30.7 Anion Gap 7 BUN 15 Creatinine 0.95 Estimated GFR 82 L Random Glucose 117 H Calcium 7.8 L Impressions ITS Impressions Myocardial Perfusion Scan Nuc Med 09/22/18 00:00 CONCLUSION: 1. No significant fixed or reversible perfusion defect is identified. 2. No focal wall motion abnormality is identified. However, left ventricle ejection fraction is reduced at 45%. Discharge Plan Discharge Disposition Patient Disposition: Discharge Home Discharge Order Discharge Orders: Discharge Order (Routine); Ordered 09/23/18 Ordered By: Dejan Kaiser Discharge Details Anticipated Discharge Date: 09/23/18 Physicians Team Primary Care Provider: [facility],Physician [place] Attending Provider: Dejan Kaiser Other Providers: Jean Brown Rxs /Orders / Referrals /Forms Prescriptions: New carvedilol 25 mg tablet 25 mg PO BID Qty: 60 RF: 1 Continue atorvastatin 80 mg Tablet 40 mg PO DAILY RF: 0 furosemide [Lasix] 20 mg Tablet 20 mg PO BID RF: 0 aspirin 325 mg Tablet 325 mg PO DAILY RF: 0 losartan 100 mg Tablet 100 mg PO DAILY RF: 0 omeprazole 20 mg Tablet,Delayed Release (Dr/Ec) 20 mg PO DAILY RF: 0 albuterol sulfate 90 mcg/actuation Hfa Aerosol Inhaler 2 puff Inhalation Q6HR PRN (Reason: Shortness Of Breath) RF: 0 budesonide-formoterol 160-4.5 mcg/actuation Hfa Aerosol Inhaler 2 puff INHALATION BID PRN (Reason: sob) RF: 0 famotidine 20 mg Tablet 20 mg PO BID RF: 0 Discontinued carvedilol 6.25 mg Tablet 12.5 mg PO BID RF: 0 naproxen 250 mg Tablet 250 mg PO BID PRN (Reason: pain) RF: 0 Referrals: [facility],Physician 's [Primary Care Provider] - See Instructions Discharge Instructions Patient Printed Instructions: Heart Failure (GEN), How to Stop Smoking (GEN), Heart Healthy Diet (GEN), Hypertensive Crisis (GEN), Melena (GEN) Additional Instructions: Your Health Problems: Goals to Promote Your Health: * To prevent worsening of your condition * To maintain your health at the optimal level Directions to Meet Your Goals: * Take your medications as prescribed * Follow your dietary instruction * Follow activity as directed * Keep your appointments as scheduled * Take your immunizations and boosters as scheduled * If your symptoms worsen call your PCP * If no PCP go to Urgent Care or Emergency Room Smoking is dangerous to your health. Avoid second hand smoke. You may reach the 24-hour crisis hotline for domestic abuse at 2-077-784- 2949.You presented to the hospital because of shortness of breath. Your blood pressure was noted to be very high and you had a mild leak of the heart enzyme troponin. You received treatment with Lasix and your Carvedilol dose was increased to 25mg twice daily, please take as prescribed. Your breathing has now normalized and your blood pressure is controlled. The logging tractor operator evaluated you while here and a nuclear stress test was done that was negative. You had an episode of little blood in stool, your hemoglobin counts remained stable. You elected to follow up with your outpatient GI doctor to schedule an endoscopy, please do this as soon as possible. If you experience any further bleeding return to the ER. Follow up with your doctor within 1 week for re-evaluation. Status ED Status: Admitted Patient Discharge Information Discharge Date/Time: 09/23/18 13:24
[2018-09-23 12:34] VITALS: PULSE 68
[2018-09-23 12:35] VITALS: O2SAT 96
== END 2018-09-23 13:24 | disposition home or self-care (01) | DRG 305 ==
LOC: NEDDLT 09-22 01:25 → HCVI 09-22 01:35 → HCIS 09-22 08:55
PROVIDERS: ADMIT Hospitalist; ATTEND Hospitalist
CPT/HCPCS: 36600; 71020; 71046; 71275; 78452; 80048; 80053; 81001; 82272; 82550; 82552; 82805; 83520; 83735; 83880; 84443; 84484; 85025; 85379; 85610; 85730; 90774; 90775; 90784; 93005; 93017; 94640; 94664; 94665; 96374; 96375; 99291; A9502; C8952; J1644; J2405; J2785; J2920; J3475; Q9967